=== PATIENT | female | born 1950 | race Caucasian/White ===

== ENCOUNTER → 2019-05-28 15:18 | Outpatient (CLI) | payer MEDICARE ==
[2015-10-20 11:03] VITALS: BMI 25.4
[~2019-05-28 15:18] MED LIST: AMBIEN5 MG PO; ATIVAN0.5 MG PO; HYDROCODON-ACE1 EAC7 PO; HYDROCODONE-APA1 TAB PO; NORVASC5 MG PO; PRAVACHOL40 MG PO; ZETIA10 MG PO
[2019-05-28 15:34] LABS: EOSINOPHILS 3.8 % (0-7); HEMATOCRIT 35.2 % (36.0-48.0); HEMOGLOBIN 11.5 g/dL (12-16); IMMATURE GRANULOCYTES 0.1 % (0-5); LYMPHOCYTES 24.3 % (15-50); MCH 28.7 pg (26.0-34.0); MCHC 32.7 g/dL (31.0-37.0); MCV 87.8 fL (80.0-100.0); MEAN PLATELET VOLUME 10.4 fL (7.4-10.4); MONOCYTES 11.1 % (2-11); NEUTROPHILS 59.7 % (40-80); RBC 4.01 10x6/uL (4.00-5.40); WBC 6.8 10x3/uL (4.8-10.8)
[2019-05-28 15:41] LABS: PLATELET COUNT 401 10x3/uL (130-400)
[2019-05-28 15:50] LABS: CREATININE - SERUM 0.6 mg/dL (0.6-1.3); VANCOMYCIN - TROUGH 14.2 ug/mL (10.0-20.0)
== END | disposition home or self-care (01) ==
LOC: D.LABREF 15:18
PROVIDERS: ATTEND Internal Medicine Infectious Disease
DX: Z51.81 Encounter for therapeutic drug level monitoring (principal); Z79.2 Long term (current) use of antibiotics; B99.9 Unspecified infectious disease

== ENCOUNTER → 2019-05-31 14:41 | Outpatient (CLI) | payer MEDICARE ==
[2015-10-20 11:03] VITALS: BMI 25.4
[2019-05-31 15:24] LABS: CREATININE - SERUM 0.6 mg/dL (0.6-1.3); VANCOMYCIN - TROUGH 11.2 ug/mL (10.0-20.0)
== END | disposition home or self-care (01) ==
LOC: D.LABREF 14:41
PROVIDERS: ATTEND Internal Medicine Infectious Disease
DX: Z51.81 Encounter for therapeutic drug level monitoring (principal); Z79.2 Long term (current) use of antibiotics; M65.88 Other synovitis and tenosynovitis, other site

== ENCOUNTER → 2019-06-08 12:37 | Outpatient (CLI) | payer MEDICARE ==
[2015-10-20 11:03] VITALS: BMI 25.4
[2019-06-08 13:49] LABS: BASOPHILS 1.3 % (0-2); EOSINOPHILS 5.6 % (0-7); HEMATOCRIT 34.5 % (36.0-48.0); HEMOGLOBIN 11.5 g/dL (12-16); IMMATURE GRANULOCYTES 0.2 % (0-5); LYMPHOCYTES 27.8 % (15-50); MCHC 33.3 g/dL (31.0-37.0); MCV 87.1 fL (80.0-100.0); MEAN PLATELET VOLUME 10.7 fL (7.4-10.4); MONOCYTES 11.9 % (2-11); NEUTROPHILS 53.2 % (40-80); RBC 3.96 10x6/uL (4.00-5.40); RDW 16.6 % (11.5-14.5)
[2019-06-08 13:54] LABS: PLATELET COUNT 259 10x3/uL (130-400)
[2019-06-08 14:02] LABS: ALBUMIN 3.3 g/dL (3.4-5.0); ALKALINE PHOSPHATASE 146 U/L (46-116); ALT (SGPT) 28 U/L (10-68); BILIRUBIN - TOTAL 0.32 mg/dL (0.2-1.3); CALC OSMOLALITY 276 mosm/kg (275-300); CALCIUM 8.8 mg/dL (8.5-10.1); CARBON DIOXIDE 28.3 mmol/L (21.0-32.0); CHLORIDE - SERUM 103 mmol/L (98-107); CREATININE - SERUM 0.6 mg/dL (0.6-1.3); GLUCOSE 85 mg/dL (74-106); SODIUM 138 mmol/L (136-145); UREA NITROGEN 17 mg/dL (7-18); VANCOMYCIN - TROUGH 22.1 ug/mL (10.0-20.0); eGFR NON AFRICAN AMERICAN > 90 mL/min (90-120)
[2019-06-08 15:46] LABS: ERYTHROCYTE SEDIMENTATION RATE 11 mm/hr (0-30)
== END | disposition home or self-care (01) ==
LOC: D.LABREF 12:37
PROVIDERS: ATTEND Internal Medicine Infectious Disease
DX: M70.60 Trochanteric bursitis, unspecified hip (principal)

== ENCOUNTER → 2019-06-14 11:18 | Outpatient (CLI) | payer MEDICARE ==
[2015-10-20 11:03] VITALS: BMI 25.4
[2019-06-14 13:40] LABS: BASOPHILS 1.6 % (0-2); EOSINOPHILS 6.5 % (0-7); HEMATOCRIT 34.8 % (36.0-48.0); HEMOGLOBIN 11.2 g/dL (12-16); IMMATURE GRANULOCYTES 0.2 % (0-5); LYMPHOCYTES 28.5 % (15-50); MCH 28.7 pg (26.0-34.0); MCHC 32.2 g/dL (31.0-37.0); MCV 89.2 fL (80.0-100.0); MONOCYTES 8.5 % (2-11); NEUTROPHILS 54.7 % (40-80); PLATELET COUNT 249 10x3/uL (130-400); RDW 16.8 % (11.5-14.5); WBC 5.1 10x3/uL (4.8-10.8)
[2019-06-14 13:56] LABS: ALBUMIN 3.3 g/dL (3.4-5.0); ALKALINE PHOSPHATASE 131 U/L (46-116); ALT (SGPT) 24 U/L (10-68); BILIRUBIN - TOTAL 0.34 mg/dL (0.2-1.3); CALC OSMOLALITY 278 mosm/kg (275-300); CALCIUM 8.8 mg/dL (8.5-10.1); CARBON DIOXIDE 27.2 mmol/L (21.0-32.0); CHLORIDE - SERUM 103 mmol/L (98-107); CREATININE - SERUM 0.5 mg/dL (0.6-1.3); GLUCOSE 116 mg/dL (74-106); POTASSIUM - SERUM 3.8 mmol/L (3.5-5.1); PROTEIN - SERUM 6.6 g/dL (6.4-8.2); SODIUM 139 mmol/L (136-145); UREA NITROGEN 12 mg/dL (7-18); VANCOMYCIN - TROUGH 11.4 ug/mL (10.0-20.0); eGFR NON AFRICAN AMERICAN > 90 mL/min (90-120)
[2019-06-14 14:58] LABS: ERYTHROCYTE SEDIMENTATION RATE 20 mm/hr (0-30)
== END | disposition home or self-care (01) ==
LOC: D.LABREF 11:18
PROVIDERS: ATTEND Internal Medicine Infectious Disease
DX: Z79.2 Long term (current) use of antibiotics (principal)

== ENCOUNTER → 2019-06-17 09:21 | Outpatient (CLI) | payer MEDICARE ==
[2015-10-20 11:03] VITALS: BMI 25.4
== END | disposition home or self-care (01) ==
LOC: D.LABREF 09:21
PROVIDERS: ATTEND Orthopaedic Surgery
DX: M00.9 Pyogenic arthritis, unspecified (principal)

== ENCOUNTER → 2019-06-21 10:05 | Outpatient (CLI) | payer MEDICARE ==
[2015-10-20 11:03] VITALS: BMI 25.4
[2019-06-21 10:35] LABS: VANCOMYCIN - TROUGH 19.4 ug/mL (10.0-20.0)
[2019-06-21 14:01] LABS: ALBUMIN 3.3 g/dL (3.4-5.0); ALKALINE PHOSPHATASE 104 U/L (46-116); ALT (SGPT) 27 U/L (10-68); BILIRUBIN - TOTAL 0.32 mg/dL (0.2-1.3); CALC OSMOLALITY 276 mosm/kg (275-300); CALCIUM 8.9 mg/dL (8.5-10.1); CARBON DIOXIDE 26.1 mmol/L (21.0-32.0); CHLORIDE - SERUM 104 mmol/L (98-107); CREATININE - SERUM 0.6 mg/dL (0.6-1.3); GLUCOSE 85 mg/dL (74-106); POTASSIUM - SERUM 3.9 mmol/L (3.5-5.1); PROTEIN - SERUM 6.7 g/dL (6.4-8.2); SODIUM 140 mmol/L (136-145); UREA NITROGEN 11 mg/dL (7-18); eGFR NON AFRICAN AMERICAN > 90 mL/min (90-120)
== END | disposition home or self-care (01) ==
LOC: D.LABREF 10:05
PROVIDERS: ATTEND Internal Medicine Infectious Disease
DX: M00.9 Pyogenic arthritis, unspecified (principal)

== ENCOUNTER → 2019-06-22 08:55 | Outpatient (CLI) | payer MEDICARE ==
[2015-10-20 11:03] VITALS: BMI 25.4
[2019-06-22 11:20] LABS: BASOPHILS 1.2 % (0-2); EOSINOPHILS 8.3 % (0-7); HEMATOCRIT 32.1 % (36.0-48.0); HEMOGLOBIN 10.8 g/dL (12-16); LYMPHOCYTES 44.3 % (15-50); MCH 29.5 pg (26.0-34.0); MCHC 33.6 g/dL (31.0-37.0); MCV 87.7 fL (80.0-100.0); MONOCYTES 14.1 % (2-11); NEUTROPHILS 32.1 % (40-80); PLATELET COUNT 259 10x3/uL (130-400); RBC 3.66 10x6/uL (4.00-5.40); RDW 16.8 % (11.5-14.5); WBC 5.2 10x3/uL (4.8-10.8)
[2019-06-22 12:34] LABS: ERYTHROCYTE SEDIMENTATION RATE 13 mm/hr (0-30)
== END | disposition home or self-care (01) ==
LOC: D.LABREF 08:55
PROVIDERS: ATTEND Internal Medicine Infectious Disease
DX: L03.116 Cellulitis of left lower limb (principal)

== ENCOUNTER → 2019-06-28 11:32 | Outpatient (CLI) | payer MEDICARE ==
[2015-10-20 11:03] VITALS: BMI 25.4
[2019-06-28 11:48] LABS: BASOPHILS 0.8 % (0-2); EOSINOPHILS 7.7 % (0-7); HEMATOCRIT 34.2 % (36.0-48.0); HEMOGLOBIN 11.3 g/dL (12-16); LYMPHOCYTES 33.7 % (15-50); MCH 29.4 pg (26.0-34.0); MCV 88.8 fL (80.0-100.0); MEAN PLATELET VOLUME 10.3 fL (7.4-10.4); MONOCYTES 11.2 % (2-11); NEUTROPHILS 46.6 % (40-80); PLATELET COUNT 265 10x3/uL (130-400); RBC 3.85 10x6/uL (4.00-5.40); RDW 16.8 % (11.5-14.5); WBC 5.1 10x3/uL (4.8-10.8)
[2019-06-28 12:03] LABS: ALBUMIN 3.3 g/dL (3.4-5.0); ALKALINE PHOSPHATASE 109 U/L (46-116); ALT (SGPT) 30 U/L (10-68); BILIRUBIN - TOTAL 0.26 mg/dL (0.2-1.3); CALC OSMOLALITY 283 mosm/kg (275-300); CALCIUM 9.1 mg/dL (8.5-10.1); CARBON DIOXIDE 28.3 mmol/L (21.0-32.0); CHLORIDE - SERUM 107 mmol/L (98-107); CREATININE - SERUM 0.5 mg/dL (0.6-1.3); GLUCOSE 76 mg/dL (74-106); POTASSIUM - SERUM 3.9 mmol/L (3.5-5.1); PROTEIN - SERUM 6.9 g/dL (6.4-8.2); SODIUM 143 mmol/L (136-145); UREA NITROGEN 13 mg/dL (7-18); VANCOMYCIN - TROUGH 17.6 ug/mL (10.0-20.0); eGFR NON AFRICAN AMERICAN > 90 mL/min (90-120)
[2019-06-28 12:58] LABS: ERYTHROCYTE SEDIMENTATION RATE 20 mm/hr (0-30)
== END | disposition home or self-care (01) ==
LOC: D.LABREF 11:32
PROVIDERS: ATTEND Family Medicine
DX: M00.9 Pyogenic arthritis, unspecified (principal); Z79.2 Long term (current) use of antibiotics